=== PATIENT | male | born 1945 | race Caucasian/White ===

== ENCOUNTER 2017-09-20 14:11 | Inpatient (IN) | payer OTHER, MEDICARE ==
[~2017-09-20] VITALS: Ht 180.3 cm; Wt 111.2 kg
--- NOTE | 2017-09-20 14:19 | ED GI/GU/ABDOMINAL COMPLAINT ---
History of Present Illness General Chief Complaint: General Adult Stated Complaint: VOMITING AFTER COLONOSCOPY Source: patient, family Exam Limitations: no limitations Vital Signs & Intake/Output Vital Signs & Intake/Output Vital Signs Date Time Temp Pulse Resp B/P B/P Pulse O2 O2 Flow FiO2 Mean Ox Delivery Rate 09/20 1705 99.2 102 16 160/73 94 Room Air 09/20 1425 Room Air 09/20 1421 98.4 78 20 137/72 94 Room Air Triage Nurses Notes Reviewed? yes Onset: Abrupt Duration: minute(s): Timing: single episode today Quality/Severity: moderate HPI: 72YO male with hx of HTN sent to ED from GI suite after vomiting following routine colonoscopy this AM with Dr. Bonilla. Patient was difficult to wake up following procedure and had vomiting episode requiring suction. Patient arrived in emergency department slightly hypoxic with O2 saturation at 94%. Patient does not remember episode of vomiting as he was coming out of sedation. Patient currently with nonproductive cough however otherwise feels well. He denies abdominal pain, nausea, chest pain, dyspnea. (Laura Burgos) Allergies Coded Allergies: No Known Allergies (09/20/17) (Bennett Crawford DO) Past History Medical History Any Pertinent Medical History? see below for history Cardiovascular: hypertension Surgical History Surgical History: non-contributory Family History Hx Contributory? No (Laura Burgos) Review of Systems Review of Systems Constitutional: Reports: no symptoms. EENTM: Reports: no symptoms. Respiratory: Reports: see HPI. Cardiovascular: Reports: no symptoms. GI: Reports: see HPI. Genitourinary: Reports: no symptoms. Musculoskeletal: Reports: no symptoms. Skin: Reports: no symptoms. Neurological/Psychological: Reports: no symptoms. Hematologic/Endocrine: Reports: no symptoms. Immunologic/Allergic: Reports: no symptoms. All Other Systems: Reviewed and Negative (Laura Burgos) Physical Exam Physical Exam General Appearance: well developed/nourished, no apparent distress, alert, awake Head: atraumatic, normal appearance Eyes: Bilateral: normal appearance. Ears, Nose, Throat, Mouth: hearing grossly normal Neck: normal inspection, supple, full range of motion Respiratory: no respiratory distress, diminished breath sounds left posterior lung johnson Cardiovascular: regular rate/rhythm Gastrointestinal: normal bowel sounds, soft, non-tender, no organomegaly Back: normal inspection, normal range of motion Extremities: normal range of motion Neurologic/Psych: awake, alert, oriented x 3 Skin: intact, normal color, warm/dry Core Measures ACS in differential dx? Yes Sepsis Present: No Sepsis Focused Exam Completed? No (Lorie ZHANG,Laura Hernández) Progress Differential Diagnosis: AMI, esophageal varices, peptic ulcer, PUD/GERD, aspiration PNA Plan of Care: Orders Procedure Date/time Status Nothing by Mouth 09/21 B Active ED Holding Orders 09/20 173 Active Admit to inpatient 09/20 1731 Active Vital Signs 09/20 173 Active Code Status 09/20 173 Active Patient Data 09/20 1706 Active BLOOD CULTURE 09/20 1619 Active TROPONIN LEVEL 09/20 1429 Complete LIPASE 09/20 1429 Complete COMPREHENSIVE METABOLIC PANEL 09/20 1429 Complete CBC WITHOUT DIFFERENTIAL 09/20 1429 Complete EKG 09/20 1429 Active Laboratory Tests 09/20/17 1515: Anion Gap 13, Estimated GFR > 60, BUN/Creatinine Ratio 15.7, Glucose 111 H, Calcium 9.7, Total Bilirubin 1.3, AST 26, ALT 41, Alkaline Phosphatase 81, Troponin I 0.03, Total Protein 7.3, Albumin 4.4, Globulin 2.9, Albumin/Globulin Ratio 1.5, Lipase 29, CBC w Diff NO MAN DIFF REQ, RBC 5.09, MCV 92.8, MCH 31.1 H, MCHC 33.5, RDW 13.1, MPV 8.4, Gran % 92.0 H, Lymphocytes % 2.4 L, Monocytes % 5.6, Eosinophils % 0, Basophils % 0, Absolute Granulocytes 14.6 H, Absolute Lymphocytes 0.4 L, Absolute Monocytes 0.9 H, Absolute Eosinophils 0, Absolute Basophils 0 Microbiology 09/20 1619 BLOOD: Blood Culture - ORD 09/20 1618 BLOOD: Blood Culture - ORD Patient has possible aspiration pneumonia seen on chest x-ray. It is very likely that he aspirated on vomitus following his procedure, patient required suctioning at that time. Patient also arrived with hypoxia. Patient is currently mentating well, sitting comfortably in stretcher. Patient was seen and evaluated by Dr. Crwaford. Patient requires hospital admission for further monitoring given his likely aspiration. Patient to receive IV antibiotics. Possible repeat chest x-ray. Possible pulmonology consult. Spoke with case management who recommended full admission. Spoke with Dr. Jackson regarding this patient's hospital admission. Spoke with Dr. Bonilla - patient had bilious vomiting with coffee gound emesis, he recommends GI consult while patient is here for evaluation of possible upper GI bleeding. Diagnostic Imaging: Viewed by Me: Radiology Read. Discussed w/RAD: Radiology Read. CXR Impression: PATIENT: JORGE LUIS PRESENT AGE : 72 PATIENT ACCOUNT NO: [id number] : 46 LOCATION: [facility] ORDERING PHYSICIAN: Laura ZHANG SERVICE DATE: 09/20/17 EXAM TYPE: RAD - XRY-CHEST XRAY, TWO VIEWS EXAMINATION: XR CHEST CLINICAL INFORMATION: Aspiration pneumonia. Vomiting and during colonoscopy. COMPARISON: None TECHNIQUE: 2 views of the chest were obtained. FINDINGS: Examination is slightly limited because of technique, slightly underpenetrated. Lungs and pleural spaces: Subtle increased opacity at the left base could reflect atelectasis or infiltrate\E\ consolidation. Lungs otherwise clear. Cardiac silhouette mediastinum pulmonary vascularity normal.. Bone and soft tissues: Unremarkable. IMPRESSION: Slightly limited examination as noted above. Possible subtle opacity at the left base could reflect atelectasis or consolidation\E\infiltrate. Mild aspiration cannot be excluded given the patient's history Suggests repeat radiograph to reevaluate as felt clinically indicated DICTATED BY: Jorge Patel MD DATE/TIME DICTATED:09/20/171502 PATHOLOGY LABORATORY DIRECTOR:SALINAS DATE/TIME TRANSCRIBED:1502 CONFIDENTIAL, DO NOT COPY WITHOUT APPROPRIATE AUTHORIZATION. < Electronically signed in Other Vendor System> SIGNED BY: Jorge Patel MD 09/20/17 1511 Initial ED EKG: sinus rhythm @78bpm, first degree AV block, RBBB, nonspecific ST changes (Lorie ZHANG,Laura Hernández) Departure Departure Disposition: STILL A PATIENT Condition: Stable Clinical Impression Primary Impression: Aspiration pneumonia Referrals: Cristel MCRAE,Luis Eduardo Talbot (PCP/Family) Departure Forms: Customer Survey General Discharge Information Admission Note Spoke With: Oxana Jackson MD Documentation of Exam: Documentation of any treatments & extenuating circumstances including Concerns Regarding Discharge (functional status, medication knowledge or non-compliance, living conditions, etc.) that warrant an admission rather than observation: [ Likely aspiration pneumonia resulting from vomiting following colonoscopy procedure requiring IV antibiotics, follow up with blood cultures, repeat labs, possible repeat chest x-ray, possible pulmonology consult, GI consult, premature discharge medically unsafe] (Lorie ZHANG,Laura Hernández) PA/WATER METER READER Co-Sign Statement Statement: ED Attending supervision documentation- [X] I saw and evaluated the patient. I have also reviewed all the pertinent lab results and diagnostic results. I agree with the findings and the plan of care as documented in the PA's/WATER METER READER's documentation. [] I have reviewed the ED Record and agree with the PA's/WATER METER READER's documentation. [] Additions or exceptions (if any) to the PAs/WATER METER READER's note and plan are summarized below: [] 72-year-old man status post colonoscopy with episode of vomiting. Significant material was aspirated. (Bennett Crawford DO)
--- NOTE | 2017-09-20 15:11 | RADIOLOGY REPORT ---
EXAMINATION: XR CHEST CLINICAL INFORMATION: Aspiration pneumonia. Vomiting and during colonoscopy. COMPARISON: None TECHNIQUE: 2 views of the chest were obtained. FINDINGS: Examination is slightly limited because of technique, slightly underpenetrated. Lungs and pleural spaces: Subtle increased opacity at the left base could reflect atelectasis or infiltrate\E\consolidation. Lungs otherwise clear. Cardiac silhouette mediastinum pulmonary vascularity normal.. Bone and soft tissues: Unremarkable. IMPRESSION: Slightly limited examination as noted above. Possible subtle opacity at the left base could reflect atelectasis or consolidation\E\infiltrate. Mild aspiration cannot be excluded given the patient's history Suggests repeat radiograph to reevaluate as felt clinically indicated
[2017-09-20 15:23] LABS: ABSOLUTE BASOPHIL COUNT 0 /CUMM (0.0-0.2); ABSOLUTE EOSINOPHIL COUNT 0 /CUMM (0.0-0.7); ABSOLUTE GRANULOCYTE CT 14.6 /CUMM (1.4-6.5); ABSOLUTE LYMPH COUNT 0.4 /CUMM (1.2-3.4); ABSOLUTE MONOCYTE COUNT 0.9 /CUMM (0.10-0.60); BASOPHIL % 0 % (0.0-2.0); EOSINOPHIL % 0 % (0-5); HEMATOCRIT 47.3 % (42-52); MEAN CORPUSCULAR HGB 31.1 PG (27.0-31.0); MEAN CORPUSCULAR HGB CONC 33.5 G/DL (33.0-37.0); MEAN CORPUSCULAR VOLUME 92.8 FL (80.0-94.0); MEAN PLATELET VOLUME 8.4 FL (7.4-10.4); PLATELET COUNT 186 /CUMM (130-400); RBC DISTRIBUTION WIDTH 13.1 % (11.5-14.5); RED BLOOD CELL CT 5.09 /CUMM (4.70-6.10); WHITE BLOOD CELL COUNT 15.9 /CUMM (4.8-10.8)
--- NOTE | 2017-09-20 17:03 | History & Physical ---
Faheem MCRAE,Hal 09/20/17 1702: General Information and HPI History of Present Illness: Mr. Santos is a 72-year-old male with past medical history of hypertension, prostate cancer followed by [facility] status post radiation, NPH followed by Dr. Ghosh and Dr. Valadez, and chronic back pain followed by Dr. Chew who presents with nausea and vomiting status post colonoscopy. Patient does not remember much from the episode. He was given propofol sedation for the colonoscopy. This is a routine colonoscopy. He was told that after the colonoscopy, he aspirated and also had nausea and vomiting. When he woke up, he was reporting sore throat, headache, chills, and fever. He has recently been otherwise well though he did have some diarrhea associated with the prep. He has had no shortness of breath, chest pain, bowel pain, or dysuria. He does not smoke, use alcohol, or recreational drugs. Allergies/Medications Allergies: Coded Allergies: No Known Allergies (09/20/17) Past History Medical History Cardiovascular: hypertension Surgical History Surgical History: non-contributory Past Family/Social History Psychosocial History Smoking Status: Never Smoked ETOH Use: denies use Illicit Drug Use: denies illicit drug use Review of Systems Review of Systems Constitutional: Reports: see HPI. EENTM: Reports: no symptoms. Cardiovascular: Reports: no symptoms. Respiratory: Reports: see HPI. GI: Reports: see HPI. Genitourinary: Reports: no symptoms. Musculoskeletal: Reports: no symptoms. Skin: Reports: no symptoms. Neurological/Psychological: Reports: no symptoms. Hematologic/Endocrine: Reports: no symptoms. Immunologic/Allergic: Reports: no symptoms. All Other Systems: Reviewed and Negative Exam & Diagnostic Data Last 24 Hrs of Vital Signs/I&O Vital Signs Date Time Temp Pulse Resp B/P B/P Pulse O2 O2 Flow FiO2 Mean Ox Delivery Rate 09/20 1705 99.2 102 16 160/73 94 Room Air 09/20 1425 Room Air 09/20 1421 98.4 78 20 137/72 94 Room Air Intake & Output 09/20 1600 09/20 0800 09/20 0000 Intake Total Output Total Balance Patient 109.769 kg Weight Weight Reported by Patient Measurement Method Physical Exam General Appearance Alert, Oriented X3, Cooperative, No Acute Distress, Mild Distress Skin No Rashes, No Breakdown, No Significant Lesion HEENT Atraumatic Cardiovascular Regular Rate, Normal S1, Normal S2 Lungs expiratory crackles worse at left lung base Abdomen Normal Bowel Sounds, Soft, No Tenderness Extremities No Edema, Normal Pulses, No Tenderness/Swelling Last 24 Hrs of Labs/Klever: Laboratory Tests 09/20/17 1515: Anion Gap 13, Estimated GFR > 60, BUN/Creatinine Ratio 15.7, Glucose 111 H, Calcium 9.7, Total Bilirubin 1.3, AST 26, ALT 41, Alkaline Phosphatase 81, Troponin I 0.03, Total Protein 7.3, Albumin 4.4, Globulin 2.9, Albumin/Globulin Ratio 1.5, Lipase 29, CBC w Diff NO MAN DIFF REQ, RBC 5.09, MCV 92.8, MCH 31.1 H, MCHC 33.5, RDW 13.1, MPV 8.4, Gran % 92.0 H, Lymphocytes % 2.4 L, Monocytes % 5.6, Eosinophils % 0, Basophils % 0, Absolute Granulocytes 14.6 H, Absolute Lymphocytes 0.4 L, Absolute Monocytes 0.9 H, Absolute Eosinophils 0, Absolute Basophils 0 Microbiology 09/20 1618 BLOOD: Blood Culture - ORD 09/20 1618 BLOOD: Blood Culture - ORD Assessment/Plan Assessment: Mr. Santos is a 72-year-old male with past medical history of hypertension, prostate cancer followed by [facility] status post radiation, NPH followed by Dr. Ghosh and Dr. Valadez, and chronic back pain followed by Dr. Chew who presents with nausea and vomiting status post colonoscopy. On presentation, vital signs were T 98.4, HR 70, RR 20, BP 137/72, saturating 94 % on room air. Laboratories worsened and for white blood cell count 15.9, hemoglobin 15.8, glucose 111, calcium 9.7, negative LFTs, troponin 0.01, lipase 29. Chest x-ray showed a possible subtle opacity at the left base that could reflect atelectasis or consolidation or infiltrate. He will be admitted to general medicine and treated for the following problems: 1. Aspiration pneumonitis #Aspiration pneumonitis: Patient presents with history of aspiration while on anesthesia status post colonoscopy. It is likely that his fever and symptoms are secondary to chemical (gastric secreations) pneumonitis as not enough time has developed for infection. However, given that he has an acid injured lung, he is at high risk for acquiring a bacterial superinfection. -Ampicillin/sulbactam -Follow blood cultures -ABG if hypoxic -IV fluid hydration #Chronic medical problem: -Continue other medications DVT prophylaxis with enoxaparin Regular diet Full code As Ranked By This Provider Problem List: 1. Pneumonitis due to aspiration during anesthesia Core Measures/Misc (02/21) Acute Coronary Syndrome ACS Diagnosis: No Congestive Heart Failure Congestive Heart Failure Diagnosis No Cerebrovascular Accident CVA/TIA Diagnosis: No VTE (View Protocol) VTE Risk Factors Age>40 No Mechanical VTE Prophylaxis d/t N/A MechProphylax Ordered No VTE Pharm Prophylaxis d/t NA PharmProphylax ordered Sepsis (View protocol) Sepsis Present: No Satish Mohr 09/20/17 1833: Resident Review Statement Resident Statement: examined this patient, discussed with qa intern, agreed with qa intern, discussed with case mgmt, reviewed images, amended to note Other Findings: 72-year-old gentleman with history of hypertension, prostate cancer, NPH, chronic low back pain was here for a surveillance colonoscopy, and an episode of vomiting post procedure accompanied by shivering and fever as high as 101, was subsequently brought into the ED where he was found to have leukocytosis to 15.1 and a chest x-ray revealing the subtle opacity at the left base, which may represent an infiltrate. During the interview, patient denies any shortness of breath, worsening cough, chest pain. Admit the patient to general medicine floor for aspiration pneumonitis versus aspiration pneumonia. IV Unasyn 3 g every 6. Passed bedside swallow eval, will start on regular diet. Please confirm patient's home medications. TRC, suctioning when necessary. Full code. Lovenox for DVT prophylaxis. Regular diet. Renetta MCRAE,Oxana 09/20/17 1844: Past Family/Social History Psychosocial History Other Social History: Family history non contributory to present illness Attending MD Review Statement Attending Statement Attending MD Statement: examined this patient, discuss w/resident/PA/ER NURSE, agreed w/resident/PA/ER NURSE, reviewed EMR data (avail), discussed with nursing, discussed with case mgmt Attending Assessment/Plan: 72-year-old male past medical history of prostate cancer followed at [facility] in the past and status post radiation therapy, normal pressure hydrocephalus actively followed by neurology and chronic back pain. He is on no medications as an outpatient. Was here for a routine screening colonoscopy with Luis Eduardo Bonilla DO. Got sedation with propofol and post procedure vomited. In the emergency room febrile to 101 with a sat that dropped to the 90s, a chest x-ray that shows a left basilar infiltrate with a white count of 15.9. At this point will bring him into GEN medicine for an aspiration pneumonia. After cultures are obtained will start him on IV Unasyn. Will follow-up clinically as to his cough and fever as well as on his white count. DVT prophylaxis. Patient passed a bedside swallow eval and has no known history of swallowing abnormalities. I think this was clearly related to the sedation he got and will follow closely
--- NOTE | 2017-09-20 17:03 | Admission Certification ---
Admission Certification Certification Statement - As attending physician, I certify that at the time of - admission, based on clinical presentation, severity of - symptoms, need for further diagnostic testing and - therapeutic interventions, and risk of adverse outcomes - without in-hospital treatment, in my clinical assessment, - this patient requires an acute hospital stay for a minimum - of two nights or longer. I have also considered psychsocial - factors such as support system, advanced age, financial - issues, cognitive issues, and failed out-patient treatments, - past re-admission history, safety of patient, and lack of - compliance as applicable. Specific rationale supporting this admission is: Aspiration pneumonia needs IV antibiotics.
[2017-09-20 21:48] VITALS: BP 128/82
[2017-09-21 06:09] VITALS: BP 138/72
--- NOTE | 2017-09-21 07:10 | PN- Housestaff ---
See Addendum Subjective Follow-up For: Aspiration pneumonitis Subjective: No overnight events. Patient feels good this morning, no fevers, chest pain, shortness of breath. He feels ready to go home. Review of Systems Constitutional: Reports: no symptoms. EENTM: Reports: no symptoms. Cardiovascular: Reports: no symptoms. Respiratory: Reports: no symptoms. Gastrointestinal: Reports: no symptoms. Genitourinary: Reports: no symptoms. Musculoskeletal: Reports: no symptoms. Skin: Reports: no symptoms. Neurological/Psychological: Reports: no symptoms. Hematologic/Endocrine: Reports: no symptoms. Immunologic/Allergic: Reports: no symptoms. Objective Last 24 Hrs of Vital Signs/I&O Vital Signs Date Time Temp Pulse Resp B/P B/P Pulse O2 O2 Flow FiO2 Mean Ox Delivery Rate 09/21 0609 99.1 88 22 138/72 93 Room Air 09/20 2256 Room Air 09/20 2148 98.9 110 18 128/82 92 Room Air 09/20 2044 92 Room Air 09/20 2004 98.6 101 16 135/67 94 Room Air 09/21 2003 98.6 101 16 135/67 09/20 1906 Room Air 09/20 1705 99.2 102 16 160/73 94 Room Air 09/20 1425 Room Air 09/20 1421 98.4 78 20 137/72 94 Room Air Intake & Output 09/21 0800 09/21 0000 09/20 1600 Intake Total 220 Output Total 200 Balance -200 220 Intake, Oral 220 Output, Urine 200 Patient 111.187 kg 109.769 kg Weight Weight Bed scale Reported by Patient Measurement Method Physical Exam General Appearance: Alert, Oriented X3, Cooperative, No Acute Distress Cardiovascular: Regular Rate, Normal S1, Normal S2 Lungs: crackles > on L Abdomen: Normal Bowel Sounds, Soft, No Tenderness Extremities: No Edema, Normal Pulses, No Tenderness/Swelling Current Medications: Current Medications Sig/Thai Start time Last Medication Dose Route Stop Time Status Admin Acetaminophen 650 MG Q6P PRN 09/20 181 AC 09/20 PO 2123 Albuterol Sulfate 3 ML BID 09/21 0900 AC 09/20 INH 2125 Amlodipine Besylate 0 .STK-MED ONE 09/20 2002 DC PO Amlodipine Besylate 5 MG DAILY 09/20 1945 AC 09/20 PO 2003 Ampicillin Sodium/ 1,500 MG Q6 09/21 0600 AC 09/21 Sulbactam Sodium IV 0534 Sodium Chloride 100 ML Ampicillin Sodium/ 0 .STK-MED ONE 09/20 1724 DC Sulbactam Sodium .ROUTE Ampicillin Sodium/ 3,000 MG ONCE ONE 09/20 1630 DC 09/20 Sulbactam Sodium IV 09/20 1659 1835 Sodium Chloride 100 ML Enoxaparin Sodium 40 MG DAILY 09/21 0900 AC SC Ondansetron HCl 4 MG Q6P PRN 09/20 181 AC IV Sodium Chloride 1,000 ML .[id number] 09/20 181 AC 09/20 IV 09/21 0734 1914 Last 24 Hrs of Lab/Klever Results Last 24 Hrs of Labs/Mics: Laboratory Tests 09/20/17 1515: Anion Gap 13, Estimated GFR > 60, BUN/Creatinine Ratio 15.7, Glucose 111 H, Calcium 9.7, Total Bilirubin 1.3, AST 26, ALT 41, Alkaline Phosphatase 81, Troponin I 0.03, Total Protein 7.3, Albumin 4.4, Globulin 2.9, Albumin/Globulin Ratio 1.5, Lipase 29, CBC w Diff NO MAN DIFF REQ, RBC 5.09, MCV 92.8, MCH 31.1 H, MCHC 33.5, RDW 13.1, MPV 8.4, Gran % 92.0 H, Lymphocytes % 2.4 L, Monocytes % 5.6, Eosinophils % 0, Basophils % 0, Absolute Granulocytes 14.6 H, Absolute Lymphocytes 0.4 L, Absolute Monocytes 0.9 H, Absolute Eosinophils 0, Absolute Basophils 0 Microbiology 09/20 1829 BLOOD: Blood Culture - RECD 09/21 1819 BLOOD: Blood Culture - RECD Assessment/Plan Assessment: Mr. Santos is a 72-year-old male with past medical history of hypertension, prostate cancer followed by [facility] status post radiation, NPH followed by Dr. Ghosh and Dr. Valadez, and chronic back pain followed by Dr. Chew who presented with nausea and vomiting status post colonoscopy. Problem list: 1. Aspiration pneumonitis #Aspiration pneumonitis: Patient presents with history of aspiration while on anesthesia status post colonoscopy. It is likely that his fever and symptoms were secondary to chemical (gastric secreations) pneumonitis as not enough time has developed for infection. However, given that he has an acid injured lung, he is at high risk for acquiring a bacterial superinfection. We will give him a 5 day course of antibiotics. He maintained saturation 93-95% while ambulating. Otherwise, he is stable for discharge today. -Amoxicillin/clauvulanic acid, day 2 -Follow blood cultures #Chronic medical problem: -Continue other medications DVT prophylaxis with enoxaparin Regular diet Full code Problem List: 1. Pneumonitis due to aspiration during anesthesia Pain Ratin Pain Location: no Pain Goal: Remain pain free Pain Plan: see a/p Tomorrow's Labs & Rationales: no
[2017-09-21] MEDS ORDERED: AUGMENTIN 875-1 EACH PO ×2 (08:27→10:52)
--- NOTE | 2017-09-21 08:28 | Patient Discharge Instructions ---
Discharge Instructions General Discharge Information You were seen/treated for: Aspiration pneumonitis Watch for these problems: Fever, chest pain, shortness of breath Special Instructions: Please take all medications as directed. Please follow-up with primary care. Diet Continue normal diet: Yes Activity Full Activity/No Limits: Yes Acute Coronary Syndrome Inclusion Criteria At DC or during hospital stay patient has or had the following: ACS DIAGNOSIS No Discharge Core Measures Meds if any: Prescribed or Continued at Discharge Meds if any: NOT Prescribed or Continued at Discharge Congestive Heart Failure Inclusion Criteria At DC or during hospital stay patient has or had the following: CHF DIAGNOSIS No Discharge Core Measures Meds if any: Prescribed or Continued at Discharge Meds if any: NOT Prescribed or Continued at Discharge Cerebrovascular accident Inclusion Criteria At DC or during hospital stay patient has or had the following: CVA/TIA Diagnosis No Discharge Core Measures Meds if any: Prescribed or Continued at Discharge Meds if any: NOT Prescribed or Continued at Discharge Venous thromboembolism Inclusion Criteria VTE Diagnosis No VTE Type NONE VTE Confirmed by (Test) NONE Discharge Core Measures - Per Current guidelines, there needs to be overlap - treatment for the first 5 days of Warfarin therapy. - If discharged on Warfarin prior to 5 days of - overlap therapy, the patient will need to be - assessed for post discharge needs including - *Post discharge parental anticoagulation - *Warfarin and/or parental anticoagulation education - *Follow up date to check INR post discharge At least 5 days overlap therapy as Inpatient No Meds if any: Prescribed or Continued at Discharge Note: Overlap Therapy is Warfarin and Anticoagulant Meds if any: NOT Prescribed or Continued at Discharge
[2017-09-21] MEDS ORDERED: ASPIRIN81 M4 PO (08:45)
[2017-09-21] MEDS ORDERED: BENICAR40 M1 PO (08:45)
[2017-09-21] MEDS ORDERED: AMLODIPINE BESYL5 M1 PO (08:46)
[2017-09-21 09:05] LABS: ABSOLUTE BASOPHIL COUNT 0 /CUMM (0.0-0.2); ABSOLUTE EOSINOPHIL COUNT 0 /CUMM (0.0-0.7); RBC DISTRIBUTION WIDTH 12.8 % (11.5-14.5)
[2017-09-21 09:25] LABS: ABSOLUTE LYMPH COUNT 0.9 /CUMM (1.2-3.4); ABSOLUTE MONOCYTE COUNT 0.8 /CUMM (0.10-0.60); BASOPHIL % 0.2 % (0.0-2.0); EOSINOPHIL % 0.3 % (0-5); MEAN CORPUSCULAR HGB 31.4 PG (27.0-31.0); MEAN CORPUSCULAR HGB CONC 33.4 G/DL (33.0-37.0); MEAN CORPUSCULAR VOLUME 93.8 FL (80.0-94.0); MEAN PLATELET VOLUME 8.9 FL (7.4-10.4); PLATELET COUNT 152 /CUMM (130-400); RED BLOOD CELL CT 4.32 /CUMM (4.70-6.10); WHITE BLOOD CELL COUNT 13.8 /CUMM (4.8-10.8)
[2017-09-21 09:29] LABS: HEMATOCRIT 40.5 % (42-52)
[2017-09-21 09:57] VITALS: BP 138/72
--- NOTE | 2017-09-21 10:55 | Discharge Summary ---
Visit Information Visit Dates Admission Date: 09/20/17 Discharge Date: 09/21/17 Hospital Course Course Attending Physician: Renetta MCRAE,Oxana Talbot Primary Care Physician: Cristel MCRAE,Luis Eduardo Talbot Hospital Course: Mr. Santos is a 72-year-old male with past medical history of hypertension, prostate cancer followed by [facility] status post radiation, NPH followed by Dr. Ghosh and Dr. Valadez, and chronic back pain followed by Dr. Chew who presented with nausea and vomiting status post colonoscopy. On presentation, vital signs were T 98.4, HR 70, RR 20, BP 137/72, saturating 94 % on room air. Laboratories worsened and for white blood cell count 15.9, hemoglobin 15.8, glucose 111, calcium 9.7, negative LFTs, troponin 0.01, lipase 29. Chest x-ray showed a possible subtle opacity at the left base that could reflect atelectasis or consolidation or infiltrate. He was admitted to general medicine and treated for the following problems: 1. Aspiration pneumonitis #Aspiration pneumonitis: Patient presented with history of aspiration while on anesthesia status post colonoscopy. It is likely that his fever and symptoms were secondary to chemical (gastric secreations) pneumonitis as not enough time has developed for infection. However, given that he has an acid injured lung, he is at high risk for acquiring a bacterial superinfection. We will give him a 5 day course of antibiotics. He maintained saturation 93-95% while ambulating. Otherwise, he is stable for discharge today. He should continue the antibiotics and follow up with primary care. #Chronic medical problem: His other home medications were continued. Allergies: Coded Allergies: No Known Allergies (09/20/17) Disposition Summary Disposition Principal Diagnosis: 1. Aspiration pneumonitis Additional Diagnosis: 1. Aspiration pneumonitis Discharge Disposition: home or self care Discharge Instructions General Discharge Information Code Status: Full Code Patient's Diet: Regular diet Patient's Activity: As tolerated Follow-Up Instructions/Appts: Please take all medications as directed. Please follow-up with primary care. Medications at Discharge Discharge Medications: Continue taking these medications: Olmesartan Medoxomil (Benicar) 40 MG TABLET 1 Tablet ORAL DAILY Comments: Last Taken: 09/21 Time: 0900 (PATIENT TOOK LOSARTAN) Aspirin (Aspirin*) 81 MG TAB.CHEW 1 Tablet ORAL DAILY Comments: Last Taken: 09/21 Time: 0900 Amlodipine Besylate (Amlodipine Besylate) 5 MG TABLET 1 Tablet ORAL DAILY Comments: Last Taken: 09/21 Time: 0900 Start taking the following new medications: Amoxicillin/Potassium Clav (Augmentin 875-125 Tablet) 875 MG-125 MG TABLET 1 Tablet ORAL TWICE DAILY Qty = 8 No Refills Comments: Last Taken: 09/21 Time: 0900 Copies To: Cristel MCRAE,Luis Eduardo Talbot
== END 2017-09-21 11:23 | disposition home health service (06) | DRG 178 ==
LOC: ERH 14:11 → 2NB 17:31 → ERHI 17:31 → EDBEDREQ 18:54 → ENRESERV 19:04 → ENTRNSPT 19:59 → EDTRNSPTSTS 20:05 → EDTRNSPT 20:05 → 2NB 20:15 → CMPTRNSPT 20:23 → ENTRNSPT 09-21 11:11 → EDTRNSPTSTS 09-21 11:15 → EDTRNSPT 09-21 11:15 → CMPTRNSPT 09-21 11:20 → 2NB 09-21 11:23
PROVIDERS: Internal Medicine Hematology & Oncology; Physician Assistant
DX: J69.0 Pneumonitis due to inhalation of food and vomit (principal); G91.2 (Idiopathic) normal pressure hydrocephalus; C61 Malignant neoplasm of prostate; J95.88 Other intraoperative complications of respiratory system, not elsewhere classified; T41.295A Adverse effect of other general anesthetics, initial encounter; I10 Essential (primary) hypertension; Y84.9 Medical procedure, unspecified as the cause of abnormal reaction of the patient, or of later complication, without mention of misadventure at the time of the procedure; Y70.8 Miscellaneous anesthesiology devices associated with adverse incidents, not elsewhere classified; Z92.3 Personal history of irradiation
CPT/HCPCS: 2NSBP; 36415; 71046; 82436; 87040; 93005; 93010; J1650; J3490